=== PATIENT | male | born 1985 | race American Indian/Alaskan Native ===

== ENCOUNTER 2017-02-16 15:15 | Emergency (ER) | payer OTHER ==
[2017-02-16] MEDS ORDERED: FLEXERIL PO ONE (17:02)
[2017-02-16] MEDS ORDERED: MOTRIN PO ONE (17:02)
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
[2017-02-16] MEDS ORDERED: BOOSTRIX IM ONE (18:31)
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
[2017-02-16 19:03] VITALS: BP 151/69
== END 2017-02-16 19:02 | disposition home or self-care (01) ==
LOC: ED 15:15
DX: S80.812A Abrasion, left lower leg, initial encounter (principal); M79.661 Pain in right lower leg; M25.512 Pain in left shoulder; M25.552 Pain in left hip; V49.49XA Driver injured in collision with other motor vehicles in traffic accident, initial encounter; Y93.9 Activity, unspecified; Y92.9 Unspecified place or not applicable; Y99.9 Unspecified external cause status
CPT/HCPCS: 90471; 90715; 99283